=== PATIENT | female | born 1950 | race Caucasian/White ===

== ENCOUNTER 2017-04-21 11:09 | Inpatient (IN) | payer BC, MEDICARE ==
[~2017-04-21] VITALS: Ht 162.6 cm; Wt 111.3 kg
[2017-04-21] MEDS ORDERED: ATEN50TA PO (16:12)
[2017-04-21] MEDS ORDERED: ESOM1CAP16 PO (16:12)
[2017-04-21] MEDS ORDERED: FLUT1SPR5 EACH NARE (16:12)
[2017-04-21] MEDS ORDERED: DICL75TA PO (16:12)
[2017-04-21] MEDS ORDERED: LORA-373 PO (16:12)
[2017-04-21] MEDS ORDERED: LOSA50TA PO (16:12)
[2017-04-21] MEDS ORDERED: ATOR40TA16 PO (16:12)
[2017-04-21] MEDS ORDERED: SYMB160A INH (16:12)
--- NOTE | 2017-04-28 19:23 | MH ---
cc: Latesha OLVERA DATE OF ADMISSION 04/30/2017 ADMISSION DIAGNOSIS Osteoarthritic degeneration right hip now being admitted for right total hip arthroplasty. HISTORY OF PRESENT ILLNESS A pleasant 66-year old female who is being admitted today for right total hip arthroplasty due to severe painful osteoarthritic degeneration right hip. PAST MEDICAL HISTORY 1. History of hypertension. 2. Allergy induced asthma. MEDICATIONS Current medications include 1. Atenolol. 2. Lisinopril 3. Omeprazole 4. Atorvastatin 5. Diclofenac stopped before surgery. REVIEW OF SYSTEMS Noncontributory. FAMILY HISTORY Noncontributory. PAST SURGERIES 1. Bladder sling 2. Right hip injection. SOCIAL HISTORY She does not smoke and drinks on weekends only. ALLERGIES DUST AND POLLEN PHYSICAL EXAMINATION GENERAL: A 66-year old female well-developed, well-nourished, oriented x3 complaining of pain in her right hip. VITAL SIGNS: Blood pressure 130/64, pulse 69 and regular, respiration 18, temperature 97.9, pulse oximetry 96% on room air. HEENT: Eyes PERRLA, EOMI. Ears, nose, mouth clear. NECK: Supple. LUNGS: Clear HEART: Regular rate. ABDOMEN: Soft. Positive bowel sounds, nontender. EXTREMITIES: The right hip has decreased range of motion neurovascularly to her toes. IMPRESSION Severe painful osteoarthritic degeneration right hip. PLAN Admission right total hip arthroplasty today. The patient understands procedure well and risks involved, given prescription for postop pain control in the office and anticoagulation therapy, plans on going home with home health care after surgery. She understands to use Hibiclens scrub and Bactroban preoperatively. MD SAGRARIO Carrillo/ /6:09 PM /7:17 PM
[2017-04-30] MEDS ORDERED: LACTATED RINGER'S 1000 ML IV PRN (08:15)
[2017-04-30] MEDS ORDERED: POVIDONE IODINE 5% (ANTISEPSIS KIT) 4 APPLICATIONS EACH NARE PRN (08:15)
[2017-04-30] MEDS ORDERED: SODIUM CHLORID 0.9% 500 ML IV PRN (08:15)
[2017-04-30] MEDS ORDERED: METOPROLOL TARTRATE 25 MG TAB PO PRN (08:15)
[2017-04-30] MEDS ORDERED: INSULIN HUMAN REGULAR 1,000 UNITS/10 ML VIAL SQ PRN (08:15)
[2017-04-30] MEDS ORDERED: CHLORHEXIDINE GLUCONATE 2 % 1 PACK (2 CLOTHS) TOPICAL PRN (08:15)
[2017-04-30] MEDS ORDERED: ceFAZolin 2 GM PREMIX 50 ML IV SCH (08:30)
[2017-04-30] MEDS ORDERED: VANCOMYCIN 1000 MG/NS 250 ML (for <70 kg) IV SCH ×2 (08:30)
[2017-04-30] MEDS ORDERED: CHLORHEXIDINE GLUCONATE 4% SOLN 120 ML BTL TOPICAL SCH (08:30)
[2017-04-30] MEDS ORDERED: CIPR-9 PO (08:35)
[2017-04-30 08:36] VITALS: BP 154/76; PULSE 53; RESP 18; TEMP 98; O2SAT 98
[2017-04-30] MEDS ORDERED: SODIUM CHLORIDE 0.9% IV SCH ×2 (10:00→13:00)
[2017-04-30] MEDS ORDERED: EXPAREL PERI-ARTICULAR INJECTION (TOTAL VOL. 120 ML) P-ARTICULR SCH ×2 (10:00)
[2017-04-30] MEDS ORDERED: TRANEXAMIC ACID IV SCH ×2 (10:00→13:00)
[2017-04-30] MEDS ORDERED: fentaNYL CITRATE 250 MCG/5 ML AMP ONE (10:24)
[2017-04-30] MEDS ORDERED: ACETAMINOPHEN 1000 MG/100 ML VIAL IV ONE (10:24)
[2017-04-30] MEDS ORDERED: HYDROmorphone HCL PF 2 MG/ML VIAL ONE (10:25)
[2017-04-30] MEDS ORDERED: MIDAZOLAM HCL 2 MG/2 ML VIAL ONE (10:25)
[2017-04-30] MEDS ORDERED: FAMOTIDINE 20 MG/2 ML VIAL ONE (10:25)
[2017-04-30] MEDS ORDERED: ceFAZolin INJ 1,000 MG VIAL ONE (10:51)
[2017-04-30] MEDS ORDERED: ACETAMINOPHEN 325 MG TAB PO PRN (11:00)
[2017-04-30] MEDS ORDERED: ONDANSETRON HCL 4 MG/2 ML VIAL IVP PRN (11:00)
[2017-04-30] MEDS ORDERED: SODIUM CHLORIDE 0.9% FLUSH 5 ML FLUSH IVF PRN (11:00)
[2017-04-30] MEDS ORDERED: MAGNESIUM HYDROXIDE SUSP 30 ML CUP PO PRN (11:00)
[2017-04-30] MEDS ORDERED: MORPHINE SULFATE 8 MG/ML INJ IV PUSH PRN (11:00)
[2017-04-30] MEDS ORDERED: BISACODYL 10 MG SUPP RECTAL PRN (11:00)
[2017-04-30] MEDS ORDERED: MISCELLANEOUS NURSING INFORMATION XX PRN (11:00)
[2017-04-30] MEDS ORDERED: LORazepam 0.5 MG TAB PO PRN (11:00)
[2017-04-30] MEDS ORDERED: Post-op Orders (for Pharmacy) MISC XX ONE (11:00)
[2017-04-30] MEDS ORDERED: NALOXONE HCL 0.4 MG/ML AMP IV PRN (11:00)
[2017-04-30] MEDS ORDERED: TRANEXAMIC ACID INJ 0 MG in SODIUM CHLORIDE 0.9% INJ 100 ML IV SCH (11:00)
[2017-04-30] MEDS ORDERED: ACETAMINOPHEN/HYDROcodone 325 MG/7.5 MG TAB PO PRN (11:00)
--- NOTE | 2017-04-30 11:01 | HHI.FF ---
Face to Face Verification Diagnosis: (1) Status post total hip replacement, right Physical Therapy Gait training Hip: Total hip, Protocol: Right, Posterior hip precautions, Abduction pillow while in bed, Progress to weight bearing Nursing RN: 3 days/week x 2 weeks Nursing: Tre cardoso Dressing Changes: Do not change dressing I have seen patient Nayely Carney on 04/30/17. My clinical findings support the need for the requested home health care services because: Limited ability to care for self High risk of falls I certify that my clinical findings support that this patient is homebound because: Unsteady gait/balance Latesha Lo MD Apr 30, 2017 11:01
[2017-04-30] MEDS ORDERED: ADJUSTABLE COMM1 MIS (11:03)
[2017-04-30] MEDS ORDERED: WALKER WHEELS/F1 MIS (11:04)
[2017-04-30] MEDS ORDERED: SUGAMMADEX SODIUM 200 MG/2 ML VIAL IV PUSH ONE ×2 (13:34)
[2017-04-30] MEDS: PCA - TOTAL MG MORPHINE DELIVERED PER SHIFT SCH ×2 (14:00→22:00)
[2017-04-30] MEDS: MORPHINE SULFATE 30 MG/30 ML PCA IV SCH (15:43)
[2017-04-30] MEDS: LACTATED RINGER'S 1000 ML INJ 1,000 ML IV SCH ×2 (15:45→22:06)
[2017-04-30] MEDS ORDERED: DO NOT ADM ANY ANTICOAGULANT DRUGS PRN (15:45)
[2017-04-30] MEDS ORDERED: RESP: ALBUTEROL 2.5 MG/3 ML NEB (PRN) NEB (15:45)
--- NOTE | 2017-04-30 15:45 | PD.CONS ---
[facility] Request[facility] By Dr. Lo Reason for Consult Medical management Primary Care Physician Omari Almanza MD Diagnoses: History of Present Illness This is a 66-year-old female with a history of right hip pain secondary to osteoarthritis. Underwent elective arthroplasty by Dr. Lo who requested consultation to evaluate and manage multiple medical conditions. Anesthesia record shows she was hemodynamically stable received 1300 mL crystalloid, EBL 200 mL and urine output of 400 ml. Patient has hypertension controlled on atenolol and lisinopril, allergy-induced asthma, hyperlipidemia controlled on Lipitor and GERD stable on Prilosec. She also has been receiving treatment for Klebsiella UTI with ciprofloxacin since 04/21/17. Denies UTI symptoms. At this time, patient is seen in PACU. She also complains of left knee pain from arthritis. All other systems reviewed negative Review of Systems Except as stated in HPI: all other systems reviewed are Neg Past Family Social History Allergies: Coded Allergies: Codeine (Verified Allergy, Severe, 04/21/17) Past Medical History as mentioned Past Surgical History bladdrs ling and right hip surgery Reported Medications 1. Atenolol. 2. Lisinopril 3. Omeprazole 4. Atorvastatin 5. Diclofenac stopped before surgery. Family History no HTN Social History Does not smoke. Drinks alcohol on weekends Physical Exam Vital Signs Vital Signs Date Time Temp Pulse Resp B/P Pulse Ox O2 Delivery O2 Flow Rate FiO2 04/30/17 08:36 98.0 53 18 154/76 98 Physical Exam GENERAL: This is a well-nourished, well-developed patient, in no apparent distress. SKIN: No rashes, ecchymoses or lesions. Cool and dry. HEAD: Atraumatic. Normocephalic. No temporal or scalp tenderness. EYES: Pupils equal round and reactive. Extraocular motions intact. No scleral icterus. No injection or drainage. ENT: Nose without bleeding, purulent drainage or septal hematoma. Throat without erythema, tonsillar hypertrophy or exudate. Uvula midline. Airway patent. NECK: Trachea midline. No JVD or lymphadenopathy. Supple, nontender, no meningeal signs. CARDIOVASCULAR: Regular rate and rhythm without murmurs, gallops, or rubs. RESPIRATORY: Clear to auscultation. Breath sounds equal bilaterally. No wheezes , rales, or rhonchi. GASTROINTESTINAL: Abdomen soft, non-tender, nondistended. No guarding. MUSCULOSKELETAL: Extremities without clubbing, cyanosis, or edema. RLE in a CKS. B/l SCD NEUROLOGICAL: Awake and alert. Cranial nerves II through XII intact. Motor and sensory grossly within normal limits. Five out of 5 muscle strength in all muscle groups. Normal speech. Laboratory Preop eval as follows EKG reviewed by me with sinus bradycardia heart rate of 57 no significant change from previous, CBC remarkable for white count of 4.7 hemoglobin 13.4 platelet count of 20/25, INR 1 BMP remarkable for a sodium 140 4.2 Urine Nitrogen 16 Creatinine 0.81 Glucose 101 Laboratory Tests Test 04/30/17 08:30 Blood Type AB POSITIVE Antibody Screen NEGATIVE Assessment and Plan Assessment and Plan This is a 66-year-old female with a history of right hip pain secondary to osteoarthritis. Underwent elective arthroplasty by Dr. Lo who requested consultation to evaluate and manage multiple medical conditions. Anesthesia record shows she was hemodynamically stable received 1300 mL crystalloid, EBL 200 mL and urine output of 400 ml. 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 Hypertension controlled on atenolol and lisinopril. Continue to monitor Allergy-induced asthma. Asymptomatic. Albuterol as needed. Hyperlipidemia controlled on Lipitor GERD stable on Prilosec. History of Klebsiella UTI with ciprofloxacin since 04/21/17. Denies UTI symptoms. We'll discontinue ciprofloxacin as she already completed treatment Discussed Condition With pt and nursing staff Onesimo Shelton MD Apr 30, 2017 15:45
[2017-04-30] MEDS ORDERED: PROPOFOL 200 MG/20 ML AMP IV ONE (15:51)
[2017-04-30] MEDS ORDERED: ONDANSETRON HCL 4 MG/2 ML VIAL IV PUSH ONE (15:52)
[2017-04-30] MEDS ORDERED: LACTATED RINGER'S 1000 ML INJ 1,000 ML IV ONE (15:52)
[2017-04-30] MEDS ORDERED: NEOSTIGMINE 3 MG/3 ML SYR IV ONE (15:52)
--- NOTE | 2017-04-30 16:18 | RADRPT ---
EXAM DATE/TIME: 04/30/2017 15:31 [place] COMPARISON: No previous studies available for comparison. INDICATIONS : Post-op right total hip replacement. MEDICAL HISTORY : None. SURGICAL HISTORY : Right total hip. ENCOUNTER: Initial ACUITY: 1 day PAIN SCORE: 2/10 LOCATION: Right hip FINDINGS: Right total hip arthroplasty is present. The hardware appears intact. Alignment is anatomic. Visualiz ed adjacent pelvis is focally unremarkable. CONCLUSION: Satisfactory appearance post right SHRUTHI Edson Maguire MD on April 30, 2017 at 16:16 Board Certified Radiologist. This report was verified electronically.
[2017-04-30 17:00] VITALS: BP 136/65; PULSE 62; RESP 20; TEMP 96; O2SAT 100
[2017-04-30 18:38] VITALS: O2SAT 100
[2017-04-30 20:28] VITALS: BP 155/86; PULSE 72; RESP 20; TEMP 96.4; O2SAT 100
[2017-04-30] MEDS: SODIUM CHLORIDE 0.9% FLUSH 5 ML FLUSH IVF SCH (21:00)
[2017-04-30] MEDS: ATORVASTATIN 40 MG TAB PO SCH (21:00)
[2017-04-30] MEDS ORDERED: CIPROFLOXACIN 500 MG TAB PO SCH (21:00)
[2017-04-30] MEDS ORDERED: PANTOPRAZOLE SOD 40 MG DELAYED RELEASE TAB PO ONE (21:00)
[2017-04-30] MEDS: BUDESONIDE-FORMOTEROL 160/4.5 MCG INHALER INH SCH (22:05)
[2017-04-30] MEDS: TEMAZEPAM 15 MG CAP PO PRN (23:38)
[2017-04-30 23:46] VITALS: BP 142/61; PULSE 70; RESP 19; TEMP 96.7; O2SAT 100
[2017-05-01] VITALS (8 sets, daily range): BP systolic 101–135; BP diastolic 53–81; PULSE 72–100; RESP 18–19; TEMP 96.5–98.9; O2SAT 94–99
[2017-05-01] MEDS: MORPHINE SULFATE 30 MG/30 ML PCA IV SCH (01:53)
[2017-05-01] MEDS: PCA - TOTAL MG MORPHINE DELIVERED PER SHIFT SCH (06:00)
[2017-05-01 07:24] LABS: HEMATOCRIT 33.3 % (35.0-46.0); REVIEW FLAG FINAL
[2017-05-01] MEDS: SODIUM CHLORIDE 0.9% FLUSH 5 ML FLUSH IVF SCH ×2 (09:00→21:00)
--- NOTE | 2017-05-01 09:03 | HHI.PR ---
Subjective Remarks Follow hip surgery and hypertension. She is doing okay out of bed to chair. Complaining of right hip pain as expected. No gas and bowel movement but denies nausea and abdominal pain and seen with discussed with RN Objective Vitals Vital Signs Date Time Temp Pulse Resp B/P Pulse Ox O2 Delivery O2 Flow Rate FiO2 05/01/17 07:00 98.5 76 18 128/62 99 05/01/17 03:32 96.7 74 18 131/60 99 04/30/17 23:46 96.7 70 19 142/61 100 04/30/17 20:28 96.4 72 20 155/86 100 04/30/17 19:37 Nasal Cannula 2.00 04/30/17 18:38 100 Nasal Cannula 2.00 04/30/17 17:00 96.0 62 20 136/65 100 04/30/17 16:15 54 12 145/67 100 Nasal Cannula 3 04/30/17 16:00 52 12 134/65 100 Nasal Cannula 3 04/30/17 15:45 52 14 132/63 100 Nasal Cannula 3 04/30/17 15:43 12 04/30/17 15:30 56 14 132/62 100 Nasal Cannula 3 04/30/17 15:15 57 13 133/64 100 Nasal Cannula 3 04/30/17 14:57 97.3 66 20 124/59 100 Nasal Cannula 3 I/O 04/30/17 04/30/17 04/30/17 05/01/17 05/01/17 05/01/17 07:00 15:00 23:00 07:00 15:00 23:00 Intake Total 1300 ml 924 ml 1095 ml Output Total 600 ml 850 ml 1800 ml Balance 700 ml 74 ml -705 ml Intake Oral 360 ml 480 ml IV Total 564 ml 615 ml Other 1300 ml Output Urine Total 400 ml 850 ml 1800 ml Estimated Blood Loss 200 ml # Bowel Movements 0 0 Result Diagram: 05/01/17 0638 Imaging Last Impressions Hip X-Ray 04/30/17 1056 Signed Impressions: Service Date/Time: April 15:31 - CONCLUSION: Satisfactory appearance post right SHRUTHI Edson Maguire MD Objective Remarks GENERAL: This is a well-nourished, well-developed patient, in no apparent distress. SKIN: No rashes, ecchymoses or lesions. Cool and dry. HEAD: Atraumatic. Normocephalic. No temporal or scalp tenderness. EYES: Pupils equal round and reactive. Extraocular motions intact. No scleral icterus. No injection or drainage. ENT: Nose without bleeding, purulent drainage or septal hematoma. Throat without erythema, tonsillar hypertrophy or exudate. Uvula midline. Airway patent. NECK: Trachea midline. No JVD or lymphadenopathy. Supple, nontender, no meningeal signs. CARDIOVASCULAR: Regular rate and rhythm without murmurs, gallops, or rubs. RESPIRATORY: Clear to auscultation. Breath sounds equal bilaterally. No wheezes , rales, or rhonchi. GASTROINTESTINAL: Abdomen soft, non-tender, nondistended. No guarding. MUSCULOSKELETAL: Extremities without clubbing, cyanosis, or edema. Bilateral teds NEUROLOGICAL: Awake and alert. Cranial nerves II through XII intact. Motor and sensory grossly within normal limits. Five out of 5 muscle strength in all muscle groups. Normal speech. A/P Assessment and Plan This is a 66-year-old female with a history of right hip pain secondary to osteoarthritis. Underwent elective arthroplasty by Dr. Lo who requested consultation to evaluate and manage multiple medical conditions. Anesthesia record shows she was hemodynamically stable received 1300 mL crystalloid, EBL 200 mL and urine output of 400 ml. 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 Discontinue Mccarty catheter as soon as possible Hypertension controlled on atenolol and lisinopril. Continue to monitor Allergy-induced asthma. Asymptomatic. Albuterol as needed. Hyperlipidemia controlled on Lipitor GERD stable on Prilosec. Postop anemia 2/2 acute blood loss . Asymptomatic. Monitor History of Klebsiella UTI . Denies UTI symptoms. Status post treatment with ciprofloxacin Discharge Planning Per orthopedic surgery Onesimo Shelton MD May 01, 2017 09:03
[2017-05-01] MEDS: LOSARTAN 50 MG TAB PO SCH (09:39)
[2017-05-01] MEDS: PANTOPRAZOLE SOD 40 MG DELAYED RELEASE TAB PO SCH (09:39)
[2017-05-01] MEDS: ATENOLOL 50 MG TAB PO SCH (09:39)
--- NOTE | 2017-05-01 09:41 | PD.ORT.PN ---
Subjective Subjective Remarks pt comfortable today. No complaints. Objective Vitals Vital Signs Date Time Temp Pulse Resp B/P Pulse Ox O2 Delivery O2 Flow Rate FiO2 05/01/17 07:00 98.5 76 18 128/62 99 05/01/17 03:32 96.7 74 18 131/60 99 04/30/17 23:46 96.7 70 19 142/61 100 04/30/17 20:28 96.4 72 20 155/86 100 04/30/17 19:37 Nasal Cannula 2.00 04/30/17 18:38 100 Nasal Cannula 2.00 04/30/17 17:00 96.0 62 20 136/65 100 04/30/17 16:15 54 12 145/67 100 Nasal Cannula 3 04/30/17 16:00 52 12 134/65 100 Nasal Cannula 3 04/30/17 15:45 52 14 132/63 100 Nasal Cannula 3 04/30/17 15:43 12 04/30/17 15:30 56 14 132/62 100 Nasal Cannula 3 04/30/17 15:15 57 13 133/64 100 Nasal Cannula 3 04/30/17 14:57 97.3 66 20 124/59 100 Nasal Cannula 3 I/O 04/30/17 04/30/17 04/30/17 05/01/17 05/01/17 05/01/17 07:00 15:00 23:00 07:00 15:00 23:00 Intake Total 1300 ml 924 ml 1095 ml Output Total 600 ml 850 ml 1800 ml Balance 700 ml 74 ml -705 ml Intake Oral 360 ml 480 ml IV Total 564 ml 615 ml Other 1300 ml Output Urine Total 400 ml 850 ml 1800 ml Estimated Blood Loss 200 ml # Bowel Movements 0 0 Result Diagram: 05/01/17 0638 Imaging Last 24 hours Impressions Hip X-Ray 04/30/17 1056 Signed Impressions: Service Date/Time: April 15:31 - CONCLUSION: Satisfactory appearance post right SHRUTHI Edson Maguire MD Objective Remarks Sitting up in chair. NV intact. 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 Latesha Lo MD May 01, 2017 09:41
[2017-05-01] MEDS: BUDESONIDE-FORMOTEROL 160/4.5 MCG INHALER INH SCH ×2 (09:42→21:00)
[2017-05-01] MEDS: ACETAMINOPHEN/HYDROcodone 325 MG/7.5 MG TAB PO PRN ×2 (11:07→18:06)
[2017-05-01] MEDS: LACTATED RINGER'S 1000 ML INJ 1,000 ML IV SCH ×2 (11:56→22:02)
[2017-05-01] MEDS ORDERED: ATOR40TA16 PO (13:26)
[2017-05-01] MEDS: ENOXAPARIN SODIUM 30 MG/0.3 ML SYRINGE SQ SCH (13:28)
[2017-05-01] MEDS ORDERED: LORazepam 0.5 MG TAB PO PRN (14:30)
--- NOTE | 2017-05-01 20:48 | MP ---
cc: Latesha LO M.D. DATE OF SURGERY: 04/30/2017. PREOPERATIVE DIAGNOSIS: Osteoarthritic degeneration, right hip. POSTOPERATIVE DIAGNOSIS: Osteoarthritic degeneration, right hip. OPERATIVE PROCEDURE PERFORMED: Right total hip arthroplasty using Aesculap components: Size 9 Press-Fit lateralized stem with a size 50 cup, 28-mm screw, 32-mm liner, 32 short neck ceramic head. No cement utilized. SURGEON: Latesha Lo MD. RUBY ON RAILS CONSULTANT: ESTEVAN Mcadams. ANESTHESIA: General intubation. SURGEON: Latesha Lo MD ANESTHESIA: ?? PROCEDURE: After successful induction of anesthesia, the patient is placed on the operating room table in the supine position. The knee is prepped and draped in the usual manner. A tourniquet is inflated at the upper thigh and set to 300 mmHg pressure after exsanguination of the lower extremity. A longitudinal incision is made extending from 3 inches proximal to the superior pole of the patella, across the patella in longitudinal fashion, and down past the insertion of the tibial tubercle into the proximal tibia. The incision is carried down through subcutaneous tissue along the medial aspect of the patella and retinaculum, down through the capsule to expose the knee joint. The patella and patellar tendon are freed up enough to allow the patella to be inverted and retracted off the lateral side of the knee joint. The knee joint is left exposed. Small osteophytes are removed. All soft tissue is removed to allow proper position of the femoral and tibial cutting jig guide. The first femoral jig is then inserted along the distal end of the femur after first measuring to decide whether this is a small, medium, or large component. The notch is then drilled and the tibial cutting guide inserted into the femoral cutting guide, along with the ankle brace to allow for proper measurement of the tibial cutting surface that needed to be resected. Pins are inserted into the tibial cutting jig and femoral cutting jig to hold them in place. An oscillating saw is then used to resect the surface of the tibia. The surface of the tibia is then completely removed using sharp and blunt dissection. The anterior and posterior cuts of the femur are then made as well using an oscillating saw through the cutting guide. All guides are then removed and the varus/valgus angulation cutting guide applied to the femur for proper measurement of the proper amount of valgus. The anterior cutting guide for the femur is then inserted at the anterior femoral cuts made. Next, the first block trial is inserted into the femur to allow for proper condyle drill holes to be made which are then made followed by removal of the bone between the condyles using an oscillating saw as well as the bone removed at the most posterior surface of the condyle. After this, this guide is removed and the chamfer cuts made using the chamfer cutting guide from both anterior and posterior. Next, the femoral trial is then inserted, the tibial surface reflected anterior to expose the tibial surface and a tibial stem guide is inserted after first measuring for a standard, standard plus, large, or large plus surface to be used. After the stem is impacted the trial tibial surface is applied followed by the trial meniscal components. After full range of motion is found with the appropriate length meniscal components varying the patella is prepared by resecting the posterior aspect of the patella using an oscillating saw, inserting a trial. The trial is then removed and the cruciate cutting guide applied using the bur to cut the cruciate cuts. After cruciate cuts are made all trials are removed. The wound is irrigated copiously with antibiotic solution and Water Pick and the actual components inserted into place using the aforementioned components. 60 cc of Exparel was used in the anterior aspect of the hip joint for extra pain control. The remains of the capsule were approximated using interrupted #1 Vicryl suture. Full range of motion of the hip joint was appreciated with no instability at this point. After the cement has hardened and the components are found to have full range of motion with no instability, the tourniquet is deflated, total tourniquet time being minutes at 300 mmHg pressure. The wound again is irrigated copiously with antibiotic solution, meticulous hemostasis achieved. Two Autovac tubes inserted, followed by closure of the deep fascia was approximated with running #2 Quill, subcutaneous tissue approximated in multiple layers using 2-0 Vicryl and 4-0 Monocryl sutures, and then a Dermabond dressing. An abduction pillow, brace and knee immobilizer. No drain was utilized. The sciatic nerve was identified and protected throughout the procedure. The patient tolerated the procedure well and left the Operating Room in satisfactory condition. The estimated blood loss was 200 cc. ESTEVAN Mcadams was present during the entire procedure to include patient positioning and the procedure. The medical necessity of a nurse practitioner and therapist's assistant was indicated in this case due to the surgical complexity of the case itself. During the surgical case, the surgical elastic knitter hand frame was working at the back table while my surgical supplies sterilizer / MANUFACTURERS AGENT was directly assisting me. A second senior executive assistant was needed for the morbid obesity of this patient. An extra hour of time was needed for exposure and closure of the case and surgical exposure and use of all the instruments as this patient is morbidly obese with a BMI of 41.2. The sponge and suture counts were correct. The sciatic nerve was protected throughout the procedure. The patient tolerated the procedure well and left the operating room in satisfactory condition. J. MD SAGRARIO Ardon/MERI /2:23 PM /8:37 PM
[2017-05-01] MEDS: ATORVASTATIN 40 MG TAB PO SCH (21:00)
[2017-05-01] MEDS: MULTIVITAMINS/MINERALS THERAPEUTIC TAB PO SCH (22:02)
[2017-05-01] MEDS: DOCUSATE SODIUM 100 MG CAP PO SCH (22:02)
[2017-05-01] MEDS: TEMAZEPAM 15 MG CAP PO PRN (22:02)
[2017-05-02 03:15] VITALS: BP 114/59; PULSE 81; RESP 19; TEMP 97.1; O2SAT 94
[2017-05-02] MEDS: ACETAMINOPHEN/HYDROcodone 325 MG/7.5 MG TAB PO PRN ×3 (03:19→14:48)
[2017-05-02] MEDS: ENOXAPARIN SODIUM 30 MG/0.3 ML SYRINGE SQ SCH ×2 (03:20→14:47)
[2017-05-02 07:04] LABS: HEMATOCRIT 32.6 % (35.0-46.0); REVIEW FLAG FINAL
[2017-05-02 08:00] VITALS: BP 123/68; PULSE 80; RESP 18; TEMP 98.2; O2SAT 97
--- NOTE | 2017-05-02 08:57 | HHI.PR ---
Subjective Remarks Follow-up hypertension and anemia. States she is doing okay still no BM but passing gas denies nausea and abdominal pain. She is expecting to be discharged by orthopedic surgery today. Discussed with RN Objective Vitals Vital Signs Date Time Temp Pulse Resp B/P Pulse Ox O2 Delivery O2 Flow Rate FiO2 05/02/17 08:00 98.2 80 18 123/68 97 05/02/17 03:15 97.1 81 19 114/59 94 05/01/17 23:46 98.9 86 18 125/60 97 05/01/17 19:37 97.5 82 19 123/64 96 05/01/17 18:43 Room Air 05/01/17 17:51 94 Nasal Cannula 1.00 05/01/17 16:00 98.2 72 18 101/53 94 05/01/17 14:36 99 Nasal Cannula 1.00 05/01/17 12:00 96.5 77 18 108/57 98 I/O 05/01/17 05/01/17 05/01/17 05/02/17 05/02/17 05/02/17 07:00 15:00 23:00 07:00 15:00 23:00 Intake Total 1095 ml 1800 ml 720 ml 720 ml Output Total 1800 ml 400 ml 200 ml Balance -705 ml 1400 ml 520 ml 720 ml Intake Oral 480 ml 1800 ml 720 ml 720 ml IV Total 615 ml Output Urine Total 1800 ml 400 ml 200 ml # Voids 2 3 # Bowel Movements 0 0 0 0 Result Diagram: 05/02/17 0529 Imaging Last Impressions Hip X-Ray 04/30/17 1056 Signed Impressions: Service Date/Time: April 15:31 - CONCLUSION: Satisfactory appearance post right SHRUTHI Edson Maguire MD Objective Remarks GENERAL: This is a well-nourished, well-developed patient, in no apparent distress. SKIN: No rashes, ecchymoses or lesions. Cool and dry. HEAD: Atraumatic. Normocephalic. No temporal or scalp tenderness. EYES: Pupils equal round and reactive. Extraocular motions intact. No scleral icterus. No injection or drainage. ENT: Nose without bleeding, purulent drainage or septal hematoma. Throat without erythema, tonsillar hypertrophy or exudate. Uvula midline. Airway patent. NECK: Trachea midline. No JVD or lymphadenopathy. Supple, nontender, no meningeal signs. CARDIOVASCULAR: Regular rate and rhythm without murmurs, gallops, or rubs. RESPIRATORY: Clear to auscultation. Breath sounds equal bilaterally. No wheezes , rales, or rhonchi. GASTROINTESTINAL: Abdomen soft, non-tender, nondistended. No guarding. MUSCULOSKELETAL: Extremities without clubbing, cyanosis, or edema. Bilateral teds NEUROLOGICAL: Awake and alert. Cranial nerves II through XII intact. Motor and sensory grossly within normal limits. Five out of 5 muscle strength in all muscle groups. Normal speech. A/P Assessment and Plan This is a 66-year-old female with a history of right hip pain secondary to osteoarthritis. Underwent elective arthroplasty by Dr. Lo who requested consultation to evaluate and manage multiple medical conditions. Anesthesia record shows she was hemodynamically stable received 1300 mL crystalloid, EBL 200 mL and urine output of 400 ml. 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 Discontinue Mccarty catheter as soon as possible Hypertension controlled on atenolol and lisinopril. Continue to monitor Allergy-induced asthma. Asymptomatic. Albuterol as needed. Hyperlipidemia controlled on Lipitor GERD stable on Prilosec. Postop anemia 2/2 acute blood loss . Asymptomatic. Monitor Constipation on bowel regimen. Discussed with RN to provide as needed medications History of Klebsiella UTI . Denies UTI symptoms. Status post treatment with ciprofloxacin Discharge Planning Possible discharge today Per orthopedic surgery Onesimo Shelton MD May 02, 2017 08:57
[2017-05-02] MEDS: BUDESONIDE-FORMOTEROL 160/4.5 MCG INHALER INH SCH (09:00)
[2017-05-02] MEDS: SODIUM CHLORIDE 0.9% FLUSH 5 ML FLUSH IVF SCH (09:00)
[2017-05-02] MEDS: ATENOLOL 50 MG TAB PO SCH (09:08)
[2017-05-02] MEDS: LOSARTAN 50 MG TAB PO SCH (09:08)
[2017-05-02] MEDS: PANTOPRAZOLE SOD 40 MG DELAYED RELEASE TAB PO SCH (09:08)
[2017-05-02] MEDS: MULTIVITAMINS/MINERALS THERAPEUTIC TAB PO SCH (09:08)
[2017-05-02] MEDS: DOCUSATE SODIUM 100 MG CAP PO SCH (09:08)
[2017-05-02 12:00] VITALS: BP 121/64; PULSE 76; RESP 18; TEMP 97.1; O2SAT 93
[2017-05-02] MEDS: LACTATED RINGER'S 1000 ML INJ 1,000 ML IV SCH (12:56)
--- NOTE | 2017-05-02 13:14 | PD.ORT.PN ---
Subjective Subjective Remarks pt comfortable today. No complaints. Objective Vitals Vital Signs Date Time Temp Pulse Resp B/P Pulse Ox O2 Delivery O2 Flow Rate FiO2 05/02/17 12:00 97.1 76 18 121/64 93 05/02/17 08:00 98.2 80 18 123/68 97 05/02/17 03:15 97.1 81 19 114/59 94 05/01/17 23:46 98.9 86 18 125/60 97 05/01/17 19:37 97.5 82 19 123/64 96 05/01/17 18:43 Room Air 05/01/17 17:51 94 Nasal Cannula 1.00 05/01/17 16:00 98.2 72 18 101/53 94 05/01/17 14:36 99 Nasal Cannula 1.00 I/O 05/01/17 05/01/17 05/01/17 05/02/17 05/02/17 05/02/17 07:00 15:00 23:00 07:00 15:00 23:00 Intake Total 1095 ml 1800 ml 720 ml 720 ml Output Total 1800 ml 400 ml 200 ml Balance -705 ml 1400 ml 520 ml 720 ml Intake Oral 480 ml 1800 ml 720 ml 720 ml IV Total 615 ml Output Urine Total 1800 ml 400 ml 200 ml # Voids 2 3 # Bowel Movements 0 0 0 0 Result Diagram: 05/02/17 0529 Imaging Last 24 hours Impressions Hip X-Ray 04/30/17 1056 Signed Impressions: Service Date/Time: April 15:31 - CONCLUSION: Satisfactory appearance post right SHRUTHI Edson Maguire MD Objective Remarks In bed at present. Dressing and wound intact. NV intact. Assessment & Plan Ortho Post Op Day #: 2 Problem List: Assessment and Plan Home today with HHC and PT. Latesha Lo MD May 02, 2017 13:14
--- NOTE | 2017-05-02 13:16 | HHI.DS ---
Discharge Summary Admission Date Apr 30, 2017 at 07:53 Discharge Date: May 02, 2017 Admitting Diagnosis Osteoarthritic degeneration right hip Diagnosis: (1) Status post total hip replacement, right Diagnosis: Principal Brief History This is a 66 year old female patient CBC/BMP: 05/02/17 0529 Significant Findings Laboratory Tests Test 05/01/17 05/02/17 06:38 05:29 Hemoglobin 10.8 GM/DL 10.8 GM/DL (11.6-15.3) (11.6-15.3) Hematocrit 33.3 % 32.6 % (35.0-46.0) (35.0-46.0) PE at Discharge In bed at present. Dressing and wound intact. NV intact. Hospital Course Patient underwent a right total hip arthroplasty on day of admission. She received a course of prophylactic IV antibiotics and within 23 hours started anticoagulation therapy. 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 She tolerated food and fluid and daily physical therapy. She continued to improve remained afebrile vital signs stable and neurovascular intact and was discharged on second postoperative day to home with home healthcare in good condition. Pt Condition on Discharge: Good Discharge Disposition: Disch w/ Home Health Serv Discharge Instructions Diet Instructions: As Tolerated, No Restrictions Activities You Can Perform: Full Weight Bearing, Shower Only-No Bath Activities to Avoid: Bathing, Driving Latesha Lo MD May 02, 2017 13:16
== END 2017-05-02 15:37 | disposition home or self-care (01) | DRG 470 ==
LOC: HSDI 04-30 07:53 → N06A 04-30 16:25
PROVIDERS: ADMIT Surgery; ATTEND Surgery
PROC: 0SR9049 Replacement of Right Hip Joint with Ceramic on Polyethylene Synthetic Substitute, Cemented, Open Approach (ICD-10-PCS; principal; 2017-04-30 11:41)
DX: M16.11 Unilateral primary osteoarthritis, right hip (principal); Z68.41 Body mass index [BMI] 40.0-44.9, adult; I10 Essential (primary) hypertension; D62 Acute posthemorrhagic anemia; J45.909 Unspecified asthma, uncomplicated; E78.5 Hyperlipidemia, unspecified; K21.9 Gastro-esophageal reflux disease without esophagitis; E66.01 Morbid (severe) obesity due to excess calories; R53.82 Chronic fatigue, unspecified; K59.00 Constipation, unspecified
CPT/HCPCS: 73501; 85014; 85018; 86850; 86900; 86901; 94150; 94664; C1776; C9290; J0131; J0690; J1170; J1650; J2250; J2270; J2405; J2710; J3010; J3370; J7050; J7120; J7613; L1830

== ENCOUNTER → 2017-04-21 | Outpatient (CLI) | payer BC, MEDICARE ==
[~2017-04-21] MED LIST: ATEN50TA PO; ATOR40TA16 PO; DICL75TA PO; ESOM1CAP16 PO; FLUT1SPR5 EACH NARE; LORA-373 PO; LOSA50TA PO; SYMB160A INH; VASO10TA8 PO; VICO7.5T PO
[2017-04-21 12:37] LABS: AUTOMATED NEUTROPHIL # 2.7 TH/MM3 (1.8-7.7); BASOPHIL % 0.9 % (0.0-2.0); EOSINOPHIL # 0.2 TH/MM3 (0-0.4); EOSINOPHIL % 3.3 % (0.0-4.0); HEMATOCRIT 40.2 % (35.0-46.0); HEMO FLAGS DIFF FINAL; LYMPH % 28.6 % (9.0-44.0); LYMPHOCYTE # 1.3 TH/MM3 (1.0-4.8); MEAN CELL VOLUME 83.4 FL (80.0-100.0); MEAN CORPUSCULAR HEMOGLOBIN 27.9 PG (27.0-34.0); MEAN CORPUSCULAR HGB CONC 33.4 % (32.0-36.0); MONO % 9.2 % (0.0-8.0); PLATELET COUNT 225 TH/MM3 (150-450); RED BLOOD COUNT 4.82 MIL/MM3 (4.00-5.30); RED CELL DISTRIBUTION WIDTH 13.7 % (11.6-17.2); WHITE BLOOD COUNT 4.7 TH/MM3 (4.0-11.0)
[2017-04-21 12:47] LABS: BACTERIA, URINE MANY /hpf; BLOOD, URINE SMALL (NEG); COMMENT (UR) CULTURE INDICATED; CULTURE IF INDICATED CULTURE INDICATED; GLUCOSE,URINE NEG (NEG); HYALINE CAST, URINE 1 /lpf (RARE); KETONE, URINE NEG (NEG); MUCUS URINE FEW /lpf (OCC); SQUAMOUS EPITHELIAL CELL URINE 2 /hpf (0-5); URINE COLOR YELLOW (YELLW/STRAW)
[2017-04-21 12:49] LABS: NITRITE,URINE POS (NEG)
[2017-04-21 12:49] LABS: APTT (PATIENT) 27.1 SEC (24.3-30.1); PROTHROMBIN TIME - PATIENT 10.5 SEC (9.8-11.6)
[2017-04-21 13:07] LABS: ANION GAP 7 MEQ/L (5-15); AST (GOT) 18 U/L (15-37); BICARBONATE 30.1 MEQ/L (21.0-32.0); BLOOD UREA NITROGEN 16 MG/DL (7-18); CHLORIDE 103 MEQ/L (98-107); GLOMERULAR FILTRATION RATE 71 ML/MIN (>89); GLUCOSE,FASTING 101 MG/DL (74-99); POTASSIUM 4.5 MEQ/L (3.5-5.1); SODIUM (NA) 140 MEQ/L (136-145)
[2017-04-21 13:08] LABS: ALT (GPT) 41 U/L (10-53)
[2017-04-21 13:10] LABS: ALKALINE PHOSPHATASE 72 U/L (45-117); TOTAL BILIRUBIN ADULT 0.6 MG/DL (0.2-1.0)
--- NOTE | 2017-04-23 13:55 | EKG ---
Date Performed: 04/21/2017 Time Performed: 11:29:18 PTAGE: 66 years EKG: SINUS BRADYCARDIA BORDERLINE ECG Compared to prior tracing no significant change PREVIOUS TRACING :07/25/00 DOCTOR: Bhavna Lim Interpretating Date/Time 04/23/2017 13:48:42
== END ==
LOC: CPRE 11:03
PROVIDERS: ATTEND Surgery
DX: Z01.812 Encounter for preprocedural laboratory examination (principal); Z01.810 Encounter for preprocedural cardiovascular examination; R94.31 Abnormal electrocardiogram [ECG] [EKG]; N39.0 Urinary tract infection, site not specified; B96.1 Klebsiella pneumoniae [K. pneumoniae] as the cause of diseases classified elsewhere
CPT/HCPCS: 36415; 80053; 81001; 85025; 85610; 85730; 87077; 87086; 87186; 93005

== ENCOUNTER 2018-01-22 06:31 | Day surgery (SDC) | payer BC, MEDICARE ==
[~2018-01-22] VITALS: Ht 162.6 cm; Wt 106.8 kg
[~2018-01-22 06:31] MED LIST changes: +ADJUSTABLE COMM1 MIS; -FLUT1SPR5 EACH NARE; -LORA-373 PO; +LORA0.5T PO; -VASO10TA8 PO; -VICO7.5T PO; +WALKER WHEELS/F1 MIS
[2018-01-22] MEDS ORDERED: LOSA50TA PO (07:20)
[2018-01-22] MEDS ORDERED: HYDR-3801 PO (07:20)
[2018-01-22] MEDS ORDERED: SODIUM CHLOR 0.9% 1000 ML INJ 1,000 ML IV SCH (07:30)
[2018-01-22 07:34] VITALS: BP 130/71; PULSE 84; RESP 20; TEMP 98.4; O2SAT 96
[2018-01-22 07:37] LABS: AUTOMATED NEUTROPHIL # 2.6 TH/MM3 (1.8-7.7); BASOPHIL % 0.8 % (0.0-2.0); EOSINOPHIL # 0.2 TH/MM3 (0-0.4); EOSINOPHIL % 4.4 % (0.0-4.0); HEMOGLOBIN 13.3 GM/DL (11.6-15.3); LYMPH % 21.9 % (9.0-44.0); LYMPHOCYTE # 0.9 TH/MM3 (1.0-4.8); MEAN CELL VOLUME 82.7 FL (80.0-100.0); MEAN CORPUSCULAR HGB CONC 35.1 % (32.0-36.0); MEAN PLATELET VOLUME 7.5 FL (7.0-11.0); MONO % 11.3 % (0.0-8.0); MONOCYTE # 0.5 TH/MM3 (0-0.9); NEUT % 61.6 % (16.0-70.0); PLATELET COUNT 216 TH/MM3 (150-450); RED BLOOD COUNT 4.59 MIL/MM3 (4.00-5.30); RED CELL DISTRIBUTION WIDTH 13.3 % (11.6-17.2); WHITE BLOOD COUNT 4.2 TH/MM3 (4.0-11.0)
[2018-01-22 07:47] LABS: PROTHROMBIN TIME - PATIENT 10.2 SEC (9.8-11.6)
[2018-01-22 07:54] LABS: BICARBONATE 26.7 MEQ/L (21.0-32.0); CALCIUM 8.6 MG/DL (8.5-10.1); CREATININE 0.79 MG/DL (0.50-1.00)
[2018-01-22 09:25] VITALS: BP 132/71; PULSE 78; PULSE 84; RESP 20; TEMP 98; O2SAT 97
--- NOTE | 2018-01-22 09:28 | PD.RAD ---
Post Procedure Progress Note Procedure Date: Jan 22, 2018 Supervising Radiologist: Jorge Lehman Proceduralist/Assist: Susan Arriola, RT(R)(), Larry Castellano RT(R) Anesthesia: Local Plan of Activity Patient to Unit: [facility] Patient Condition: Good See PACS Report for procedural detail/treatment Jorge Lehman MD Jan 22, 2018 09:28
--- NOTE | 2018-01-22 10:11 | RADRPT ---
EXAM DATE/TIME: 01/22/2018 08:32 [facility] COMPARISON: No previous studies available for comparison. INDICATIONS : Patient with a history of demyelinating disorder. MEDICAL HISTORY : Arthritis Chronic back pain Chronic neck pain Dizziness Headaches HTN Joint problems Stomach/bowel disorder UTI SURGICAL HISTORY : Bladder sling Hip replacement ENCOUNTER: Initial ACUITY: 1 month PAIN SCORE: 4/10 LOCATION: Bilateral Lower extremity LUMBAR PUNCTURE TIME: 0900 hours FLUORO TIME: 0.1 minutes 1 ACCESS LEVEL: L3-4 OPENING PRESSURE: 23.5 cm of water CLOSING PRESSURE: Not requested. FLUID: 24 cc of clear CSF was collected and sent to the laboratory for analysis. PROCEDURE : 1. Fluoroscopic guided lumbar puncture. 2. Recording of opening pressure. The risks, benefits and alternatives to the procedure were explained and verbal and written consent w as obtained. The site was prepped in sterile fashion. Full sterile technique was used, including ca p, mask, sterile gloves and gown and a large sterile sheet. Hand hygiene and 2% chlorhexidine and/or betadine/alcohol prep was utilized per protocol for cutaneous antisepsis. The skin and subcutaneous tissues were infiltrated with local anesthetic solution. With fluoroscopic guidance the lumbar thecal sac was punctured at the above level described above and the opening pressure was recorded. The above described fluid was removed without difficulty. The patient tolerated the procedure well and there were no complications. CONCLUSION: Uncomplicated fluoroscopically guided lumbar puncture with pressures as above. Jorge Lehman MD on January 22, 2018 at 10:09 Board Certified Radiologist. This report was verified electronically.
[2018-01-22 11:35] VITALS: BP 128/71; PULSE 80; RESP 20; TEMP 98; O2SAT 97
[2018-01-22 11:40] LABS: SUPERNATE COLOR TUBE #1 CLEAR (CLEAR)
[2018-01-22 11:41] LABS: RBC TUBE #2 0 /MM3; WBC TUBE #2 3 /MM3 (0-10)
[2018-01-22 11:42] LABS: CSF LYMPHOCYTES 0 %; CSF NEUTROPHILS 100 %
[2018-01-22 11:59] LABS: ALBUMIN 3.6 GM/DL (3.4-5.0)
[2018-01-23 16:21] LABS: ALBUMIN CSF 30.9 mg/dL (<=27.0); IGG CSF 4.1 mg/dL (<=8.1); IGG INDEX CSF 0.43 (<=0.85); IGG/ALBUMIN CSF 0.13 (<=0.21); IGG/ALBUMIN SERUM 0.3 (<=0.40)
== END 2018-01-22 11:30 | disposition home or self-care (01) ==
LOC: HROP 06:31 → HRIP 06:34 → HROP 11:30
PROVIDERS: ATTEND Psychiatry & Neurology Neurology
DX: G37.9 Demyelinating disease of central nervous system, unspecified (principal); R53.1 Weakness; I10 Essential (primary) hypertension; Z79.899 Other long term (current) drug therapy
CPT/HCPCS: 62270; 77003; 80048; 82040; 82042; 82784; 82945; 83873; 83916; 84157; 85025; 85610; 85730; 86592; 87015; 87070; 87102; 87116; 87205; 87206; 88108; 89051

== ENCOUNTER 2018-04-08 05:19 | Observation (INO) | payer BC ==
[~2018-04-08] VITALS: Ht 162.6 cm; Wt 103.5 kg
[~2018-04-08 05:19] MED LIST changes: -ADJUSTABLE COMM1 MIS; -ATEN50TA PO; -ATOR40TA16 PO; -DICL75TA PO; -ESOM1CAP16 PO; +HYDR-3801 PO; -WALKER WHEELS/F1 MIS
[2018-04-08] MEDS ORDERED: CHLORHEXIDINE GLUCONATE 2 % 1 PACK (2 CLOTHS) TOPICAL PRN (05:45)
[2018-04-08] MEDS ORDERED: POVIDONE IODINE 5% (ANTISEPSIS KIT) 4 APPLICATIONS EACH NARE PRN (05:45)
[2018-04-08] MEDS ORDERED: SODIUM CHLORIDE FLUSH PRN IV FLUSH (05:45)
[2018-04-08] MEDS ORDERED: METOPROLOL TARTRATE 25 MG TAB PO PRN (05:45)
[2018-04-08] MEDS ORDERED: ceFAZolin 2 GM/DEX PREMIX 50 ML IV SCH (05:45)
[2018-04-08] MEDS ORDERED: LACTATED RINGER'S 1000 ML IV PRN (05:45)
[2018-04-08] MEDS ORDERED: SODIUM CHLORID 0.9% 500 ML IV PRN (05:45)
[2018-04-08] MEDS ORDERED: HEPARIN SODIUM - SQ 10,000 UNITS/ML VIAL SQ PRN (05:45)
[2018-04-08] MEDS ORDERED: LIDOCAINE 1%/EPINEPHrine 1:100,000 SOLN 30 ML VIAL ONE (06:41)
[2018-04-08] MEDS: SODIUM CHLORIDE FLUSH BID IV FLUSH SCH ×2 (09:00→20:37)
[2018-04-08] MEDS ORDERED: HYDROmorphone HCL PF 2 MG/ML VIAL ONE (09:11)
[2018-04-08] MEDS ORDERED: ACETAMINOPHEN 1000 MG/100 ML 100 ML IV ONE (09:11)
[2018-04-08] MEDS ORDERED: SUGAMMADEX SODIUM 200 MG/2 ML VIAL IV PUSH ONE (11:30)
[2018-04-08] MEDS ORDERED: ONDANSETRON ODT 4 MG TAB SL PRN (12:15)
[2018-04-08] MEDS ORDERED: SODIUM CHLORIDE 0.9% FLUSH 10 ML FLUSH IV FLUSH PRN (12:15)
[2018-04-08] MEDS ORDERED: LORazepam 0.5 MG TAB PO PRN (12:15)
[2018-04-08] MEDS ORDERED: oxyCODONE/ACETAMINOPHEN 5 MG/325 MG TAB PO PRN (12:15)
[2018-04-08] MEDS ORDERED: diphenhydrAMINE HCL 25 MG CAP PO PRN (12:15)
[2018-04-08] MEDS ORDERED: MIDAZOLAM HCL 2 MG/2 ML VIAL ONE (12:22)
[2018-04-08] MEDS: D5-1/2 NS + KCL 20 MEQ INJ 1,000 ML IV SCH ×3 (12:30→23:51)
[2018-04-08] MEDS ORDERED: DO NOT ADM ANY ANTICOAGULANT DRUGS PRN (12:30)
[2018-04-08] MEDS ORDERED: *RESP: ALBUTEROL 2.5 MG/3 ML NEB (PRN) PERIprocedural Use ONLY NEB ONE (12:32)
[2018-04-08] MEDS: hydrALAZINE HCL 25 MG TAB PO SCH ×2 (13:00→18:00)
[2018-04-08] MEDS ORDERED: KETOROLAC TROMETHAMINE 30 MG/ML (IVP) VIAL IVP SCH (13:00)
[2018-04-08 13:13] VITALS: BP 139/71; PULSE 94; RESP 16; TEMP 97.3; O2SAT 97
[2018-04-08] MEDS: oxyCODONE/ACETAMINOPHEN 5 MG/325 MG TAB PO PRN ×2 (15:40→20:35)
[2018-04-08 16:00] VITALS: PULSE 77
[2018-04-08] MEDS: RESP: ALBUTEROL 2.5 MG/3 ML NEB (SCH) NEB ×2 (16:00→19:59)
[2018-04-08 20:00] VITALS: PULSE 74
[2018-04-08 20:02] VITALS: O2SAT 97
[2018-04-08 20:15] VITALS: BP 130/68; PULSE 80; RESP 20; TEMP 98.4; O2SAT 97
[2018-04-08] MEDS: KETOROLAC TROMETHAMINE 30 MG/ML (IVP) VIAL IVP SCH (20:34)
[2018-04-08] MEDS: BUDESONIDE-FORMOTEROL 160/4.5 MCG INHALER INH SCH (20:35)
[2018-04-08] MEDS: SODIUM CHLORIDE 0.9% FLUSH 10 ML FLUSH IV FLUSH SCH (20:37)
[2018-04-08] MEDS: LOSARTAN 50 MG TAB PO SCH (20:39)
[2018-04-09] VITALS (8 sets, daily range): BP systolic 101–124; BP diastolic 54–65; PULSE 66–81; RESP 18–20; TEMP 98.1–98.5; O2SAT 94–99
[2018-04-09] MEDS: KETOROLAC TROMETHAMINE 30 MG/ML (IVP) VIAL IVP SCH ×2 (03:00→09:14)
[2018-04-09] MEDS: RESP: ALBUTEROL 2.5 MG/3 ML NEB (SCH) NEB ×2 (03:18→07:28)
[2018-04-09 04:48] LABS: AUTOMATED NEUTROPHIL # 5.7 TH/MM3 (1.8-7.7); BASOPHIL % 0.1 % (0.0-2.0); EOSINOPHIL % 0.1 % (0.0-4.0); HEMATOCRIT 32.3 % (35.0-46.0); HEMOGLOBIN 10.8 GM/DL (11.6-15.3); LYMPH % 11.9 % (9.0-44.0); LYMPHOCYTE # 0.9 TH/MM3 (1.0-4.8); MEAN CELL VOLUME 85.4 FL (80.0-100.0); MEAN CORPUSCULAR HEMOGLOBIN 28.4 PG (27.0-34.0); MEAN CORPUSCULAR HGB CONC 33.3 % (32.0-36.0); MEAN PLATELET VOLUME 7.5 FL (7.0-11.0); MONO % 9.8 % (0.0-8.0); MONOCYTE # 0.7 TH/MM3 (0-0.9); NEUT % 78.1 % (16.0-70.0); PLATELET COUNT 204 TH/MM3 (150-450); RED BLOOD COUNT 3.78 MIL/MM3 (4.00-5.30); WHITE BLOOD COUNT 7.3 TH/MM3 (4.0-11.0)
[2018-04-09 05:17] LABS: BICARBONATE 25.4 MEQ/L (21.0-32.0); CALCIUM 7.8 MG/DL (8.5-10.1); CREATININE 0.82 MG/DL (0.50-1.00)
[2018-04-09] MEDS ORDERED: OXYC1TAB63 PO (06:32)
--- NOTE | 2018-04-09 07:06 | MD ---
cc: Karo Ness MD, Christine C MD DATE OF DISCHARGE: PROCEDURE PERFORMED: On 04/08/2018, robotic-assisted laparoscopic hysterectomy, bilateral salpingo-oophorectomy, right pelvic lymph node biopsies. HOSPITAL COURSE: She did well in the early postoperative period, remained hemodynamically stable, was tolerating oral intake. Mccarty catheter removed pending voiding. Ins and outs 2400/700. Labs this morning, H and H 10.8 and 32.3. Electrolytes essentially normal. Potassium 3.9, creatinine 0.82. PHYSICAL EXAMINATION: VITAL SIGNS: Afebrile, pulse 71-81, respirations 18-20, blood pressure 101-130/54-68, O2 saturations greater than or equal to 97%. GENERAL: Alert and oriented x 3. LUNGS: Clear, mild basilar rales. CARDIOVASCULAR: Regular rate and rhythm. ABDOMEN: Soft. Incisions clean and dry. GENITOURINARY: No bleeding. EXTREMITIES: Nontender. ASSESSMENT: Postoperative day number 1, doing well in early postoperative period. Findings at the time of surgery, preliminary pathology discussed. Activities and restrictions reviewed. Questions were asked and answered. She expressed good understanding. PLAN: I anticipate she will meet the criteria for discharge to home today. She is to resume her prior medications. She will have a prescription for Percocet for pain as needed. She is to call our office to schedule a followup within approximately 2 weeks and our office number is made available should she have any questions or problems between now and the time of scheduled followup. MD DARSHAN Lopez/MARYANNE , 06:36 AM , 07:05 AM
[2018-04-09] MEDS: SODIUM CHLORIDE FLUSH BID IV FLUSH SCH (07:31)
[2018-04-09] MEDS: SODIUM CHLORIDE 0.9% FLUSH 10 ML FLUSH IV FLUSH SCH (07:31)
--- NOTE | 2018-04-09 08:44 | MP ---
cc: Karo Ness MD, Christine C MD DATE OF OPERATION: 04/08/2018 PREOPERATIVE DIAGNOSES: 1. Uterine papillary serous adenocarcinoma. 2. Multifocal PET avid adenopathy. 3. Suspicious pulmonary nodule. 4. Enlarged uterus. POSTOPERATIVE DIAGNOSES: 1. Uterine papillary serous adenocarcinoma. 2. Multifocal PET avid adenopathy. 3. Suspicious pulmonary nodule. 4. Enlarged uterus. PROCEDURE PERFORMED: Robotic-assisted laparoscopic hysterectomy, bilateral salpingo-oophorectomy, right pelvic lymph node excisional biopsies. SURGEON: Kaor Ness MD ANESTHESIA: General endotracheal anesthesia. ESTIMATED BLOOD LOSS: 500 mL. IV FLUIDS: 1700 mL. URINE OUTPUT: 200 mL. HISTORY OF PRESENT ILLNESS: A 67-year-old female who has had on and off bleeding for many, many months, by her own admission, probably several years, recently found on evaluation to have a thickened endometrial stripe, prominent uterus. Biopsy showed a uterine papillary serous adenocarcinoma. At the time of our initial consultation, she had not yet had any imaging. She was counseled regarding the difficult and unpredictable nature of papillary serous adenocarcinoma and a preliminary discussion was held regarding consideration of postoperative chemotherapy. She was seen again in the preop holding area, accompanied by her where I had the opportunity to update them on the findings from the recent PET-CT scan. I explained that it showed fairly extensive PET avid lymph nodes as well as a suspicious nodule on the lung consistent with metastatic disease. I explained that the major burden of tumor in the lymph nodes was a multilobulated fixed aggregation lymph nodes overlying and around the vena cava and aorta in the region of the renal vessels. There were less prominent lymph nodes noted in the pelvis and there was a non PET avid pulmonary nodule that was considered suspicious. I explained that the morbidity with attempted resection of this adenopathy would exceed benefit and would not be able to render her without evidence of disease, such that chemotherapy is definitely something that will need to be considered postoperatively. Accordingly, the focus of our surgical evaluation is to remove the uterus and remove the source of bleeding. Depending on findings, we may get biopsies to try to confirm the PET scan findings, but knowing the clinical behavior of uterine papillary serous carcinoma combined with her duration of symptoms, all of these findings are certainly consistent with metastatic disease. Discussion ensued. Questions were answered. She and her expressed good understanding and agreed to move forward with surgery. FINDINGS: Uterine cavity sounded to between 11 and 12 cm. The uterus was diffusely enlarged. The tubes and ovaries grossly appeared normal. There were no peritoneal implants. The liver, diaphragm edges were smooth. The omentum grossly appeared normal, as did the large and small bowel and adjacent mesentery. There were some diverticulum noted in the descending colon. There were minimal adhesions against the left pelvic sidewall. Despite the radiographic findings, adenopathy in the retroperitoneum of the pelvis and periaortic and pericaval regions were difficult to appreciate on exam. There was a high concentration of adipose tissue surrounding and overlying the vessels, but isolated borderline prominent lymph nodes detected in the right pelvis, which were included in the biopsy specimen, which may or may not be client service representative of the overall constellation of findings. STATEMENT OF COMPLEXITY MODIFIER: The complexity of this case was increased with challenges of visualization, mobility, dissection and hemostasis confounded by body habitus with a BMI of 40. Additionally, the uterus was quite prominent and all tissues were fairly hemorrhagic and modifier should be applied accordingly. DESCRIPTION OF PROCEDURE: She was taken to the operating room and placed in dorsal lithotomy position, after general endotracheal anesthesia was administered. A timeout was undertaken. She was identified by site recognition and hospital ID bracelet, and the proposed procedure was reviewed and confirmed. She was carefully positioned in padded Ehsan stirrups. Her arms were padded and secured to the sides. She was further secured to the operating table with egg crate padding and tape in a cross chest over the shoulder fashion. All sites noted to be properly aligned with no malalignment or pressure points. She was prepped and draped in sterile fashion, placed in lithotomy position. The cervix was grasped. Uterine cavity was sounded. Cervix dilated and a large VCare manipulator inserted and secured in usual fashion. Moderate rectocele, mild to moderate cystocele were noted. A Mccarty catheter placed in the bladder. She was returned to low lithotomy position. Change of sterile gloves was undertaken and we confirmed that an orogastric tube was in the stomach on suction. With manual elevation of the abdominal wall and direct laparoscopic visualization, a 5 mm cannula was placed in the left upper quadrant. An atraumatic entry was confirmed. Carbon dioxide gas was insufflated. The 12 mm cannula was placed in the midline above the umbilicus, 8 mm cannula was placed in the right upper quadrant and left lateral quadrant and the original 5 mm exchanged for an 8 mm cannula. Peritoneal washings were obtained for cytology. The anatomy was surveyed with findings as described above. She was placed in Trendelenburg position. The small bowel was folded back on its mesenteric root and 3 Ray-Claudine sponges were placed around the root of the small bowel mesentery. The robotic system was brought into the operative field and attached in the usual fashion. Monopolar scissors, fenestrated bipolar forceps and ProGrasp manipulators were placed in arm 2, and 3 respectively and I took my place at the surgeon's console. The right round ligament, isolated, cauterized, transected. The anterior and posterior leafs of the broad ligament were opened. Right ureter was identified. Right infundibulopelvic ligament was isolated. The intervening peritoneum was opened and the infundibulopelvic ligament was isolated to the pelvic brim where it was cauterized and transected. Posterior peritoneum opened along the right side of the uterus and cervix. The right vesicouterine peritoneum were dissected off the right lower uterine segment and cervix, and the right uterine vessels were skeletonized. It is noted that there was oozing bleeding pretty much on all tissues with a clinical suspicion that there may be infiltration of tumor into the uterine wall, although it was not grossly visible, and there was no grossly visible tumor extruding through the wall of the uterus or cervix. The uterine vessels on the right were cauterized. Attention was directed toward the left side. Some lysis of adhesion was carried out to mobilize the colon from its attachment to the left pelvic sidewall. The left round ligament was isolated, cauterized, transected. The anterior and posterior leaves of the broad ligament were opened. Left ureter was identified. Left infundibulopelvic ligament was isolated. The intervening peritoneum was opened. The infundibulopelvic ligament was isolated above the level of the pelvic brim, where it was cauterized and transected. The posterior peritoneum opened along the left side of the uterus and cervix and the left vesicouterine peritoneum was dissected off the lower uterine segment and cervix. The left uterine vessels were skeletonized and the uterine vessels were cauterized. Eventually, there was satisfactory cauterization and securing of the vessels, such that the uterus blanched and the uterine vessels on the left were transected. The cardinal, paracervical and uterosacral ligaments were isolated, cauterized and transected in a stepwise fashion with ongoing oozing from the tissues as noted on the other side. Attention was redirected to the right side where the right uterine vessels were transected. The cardinal, paracervical and uterosacral ligaments were isolated, cauterized and transected in stepwise fashion, thereby freeing the attachments to both sides of the uterus and cervix. Colpotomy was performed, the cervix from the upper vagina, and due to the large size of the uterus relative to the pelvic outlet, I left the surgeon's console to help facilitate transvaginal delivery of the specimen. The tenaculum was placed on the cervix, the cavity was curetted to try to reduce the size of the uterus with a moderate amount of tumor removed and with countertraction, repositioning and slow steady withdrawal traction, the specimen was able to be delivered transvaginally which included uterus, cervix, tubes and ovaries and a pneumo-occluder was placed in the vagina to maintain pneumoperitoneum. I returned to the surgeon's console. Instruments 1 and 3 exchanged for needle drivers as a 0 Vicryl suture was introduced. The vaginal cuff was closed starting at the left corner full-thickness tissue, incorporating the edge of the uterosacral ligament and posterior peritoneum. The suture was tied and running continuous closure full-thickness was carried across the vaginal apex, holding the suture on countertraction as it was continued to the contralateral corner, where it was similarly fixed and secured and tied. The needle was cut and removed. Pelvis was irrigated. Small bleeders rendered hemostatic with bipolar cautery. The integrity of the bladder was checked by filling the bladder with saline dyed with methylene blue. The bladder distended nicely under pressure. There were no thin areas in the bladder. No visible blue certainly, no extravasation of dye and there was a good margin between the vaginal cuff and the bladder edge. Good peristalsis of ureters bilaterally and the bladder was drained. Attention was directed toward the right side, where a PET scan had shown PET avid adenopathy. In this anatomical region, the retroperitoneal dissection was carried out where the paravesical and pararectal obturator spaces were preliminarily opened. Inspection revealed some slightly prominent lymph nodes, slightly matted tissue that was thought to correspond to the PET avid area on PET scan and this lymphatic tissue was isolated and removed from the right pelvis with bipolar cautery and sharp dissection. The tissue was placed on the Ray-Claudine sponge in the right pericolic gutter for later retrieval. The dissection bed was rendered hemostatic with bipolar cautery. The pelvis and abdomen were again thoroughly irrigated and inspected. Hemostatic Surgicel was placed across the vaginal cuff and right pelvic sidewall and area of lymph node dissection. All sites were satisfactorily hemostatic. It was felt that given the overall findings, that all reasonable surgical objectives in this individual had been completed. Robotic instruments were removed. The robotic system was disengaged from the operative field. I reentered the bedside under sterile condition. A small EndoCatch bag was used to capture the lymphatic tissue, which was withdrawn through the 12 mm cannula. Next, each of the 3 Ray-Claudine sponges that had been placed in the peritoneal cavity were removed individually. Each were inspected and noted to be removed in their entirety. Visual inspection confirmed no remaining foreign objects in the peritoneal cavity other than the intentionally placed Surgicel and preliminary counts were correct. The 12 mm fascial defect was closed with 0 Vicryl sutures interrupted using a fascia needle closing apparatus. The sutures were tied securely, which rendered the fascia completely airtight and hemostatic. The remaining cannulas were withdrawn, carbon dioxide gas was removed from the peritoneal cavity, 3-0 Vicryl subcutaneous, 3-0 Vicryl subcuticular and Steri-Strips were used to close these incisions. She was returned to dorsal lithotomy position. Inspection confirmed that the vaginal cuff was well supported; however, there was central bleeding along the vaginal cuff line from some irritated mucosa apparently not included in the closure or extended beyond the closure. Exposure was challenging given the rectocele and cystocele, but with retractors and countertraction on the tissue, interrupted 0 Vicryl sutures were placed at the vaginal apex, which rendered this area hemostatic. Continued inspection and observation confirmed complete hemostasis. There were no other vaginal lacerations, but to assist in continued hemostasis, Surgicel SNoW was placed in the upper vagina and loosely packed across the vaginal cuff. There were no remaining foreign objects in the vagina other than the intentionally placed hemostatic agent. Final counts were correct. She was returned to dorsal supine position and was pending reversal of anesthesia when I left the operating room to precede her to the postanesthesia care unit and to speak to her who was waiting in the surgical waiting area. MD DARSHAN Lopez/MARYANNE , 07:30 AM , 08:43 AM
[2018-04-09] MEDS: LOSARTAN 50 MG TAB PO SCH (09:00)
[2018-04-09] MEDS: hydrALAZINE HCL 25 MG TAB PO SCH ×2 (09:00→11:57)
[2018-04-09] MEDS: BUDESONIDE-FORMOTEROL 160/4.5 MCG INHALER INH SCH (09:14)
[2018-04-09] MEDS: oxyCODONE/ACETAMINOPHEN 5 MG/325 MG TAB PO PRN ×2 (09:16→14:01)
== END 2018-04-09 14:16 | disposition home or self-care (01) ==
LOC: HSDC 05:19 → HSDI 12:11 → HCIN 13:04
PROVIDERS: ADMIT Obstetrics & Gynecology Gynecologic Oncology; ATTEND Obstetrics & Gynecology Gynecologic Oncology
DX: C54.1 Malignant neoplasm of endometrium (principal); D25.1 Intramural leiomyoma of uterus; N80.0 Endometriosis of uterus; R59.0 Localized enlarged lymph nodes; I10 Essential (primary) hypertension; M06.9 Rheumatoid arthritis, unspecified; J45.909 Unspecified asthma, uncomplicated; K21.9 Gastro-esophageal reflux disease without esophagitis; M19.90 Unspecified osteoarthritis, unspecified site
CPT/HCPCS: 00840; 38571; 58552; 80048; 85025; 86850; 86900; 86901; 88112; 88305; 88307; 88331; 94150; 94640; 94664; 96365; 96366; 96375; 96376; G0378; J0131; J0690; J1170; J1644; J1885; J2250; J3010; J3480; J7120; J7613; S2900